=== PATIENT | female | born 1945 | race Caucasian/White ===

== ENCOUNTER 2018-08-09 17:18 | Emergency (ER) | payer OTHER, MEDICARE ==
[~2018-08-09] VITALS: Ht 165.1 cm; Wt 72.6 kg
[2018-08-09 17:20] VITALS: BP_SYST 153
--- NOTE | 2018-08-09 17:20 | NUR ---
Patient to ER bed 3 to gown for evaluation. Side rails up. Report given to FOREIGN [place].
--- NOTE | 2018-08-09 17:25 | NUR ---
Patient to ER via triage for evaluation of "seeing lights" in her peripheral vision. Patient is awake, alert and oriented in no acute distress, vital signs stable, respirations even and unlabored, skin warm and dry to touch. Patient able to ambulate without difficulty with slow, steady gait to bed 3. Awaiting evaluation by ER MD, will continue to observe and assess.
--- NOTE | 2018-08-09 17:45 | NUR ---
ER at bedside examining patient.
[2018-08-09 17:56] VITALS: BP_SYST 148
--- NOTE | 2018-08-09 17:56 | NUR ---
Patient given written and verbal discharge instructions and verbalizes understanding. ER MD Gonzalez discussed with patient the results and treatment provided. Patient in stable condition. ID arm band removed. No Rx given. Patient educated on pain management and to follow up with PMD. Pain Scale 0. Opportunity for questions provided and answered. Medication side effect fact sheet provided.
== END 2018-08-09 17:56 | disposition home or self-care (01) ==
LOC: SED 17:18
DX: H43.392 Other vitreous opacities, left eye (principal); Z88.0 Allergy status to penicillin; Z88.1 Allergy status to other antibiotic agents; Z88.2 Allergy status to sulfonamides
CPT/HCPCS: 99281

== ENCOUNTER 2019-12-12 14:58 | Inpatient (IN) | payer OTHER, MEDICARE, SELFPAY ==
[~2019-12-12] VITALS: Ht 165.1 cm; Wt 73.9 kg
[~2019-12-12 14:58] MED LIST: AMLO5TAB4 PO; ATOR10TA68 PO; BUPIVACAINE /EPINEPHRINE/PF 0.5% 30 ML VIAL INJ ONE; CEFEPIME 1 GM/VIAL (MAXIPIME) IV ONE; DESFLURANE 15 MIN GAS INH ONE; DEXAMETHASONE SOD PHOSPHATE 4 MG/ML VIAL IVP ONE; LISI40TA4 PO; LR 1,000 ML IV.SOLN IV ONE; METOPROLOL TARTRATE 5 MG/5 ML VIAL IVP ONE; MIDAZOLAM HCL 5 MG/5 ML VIAL IVP ONE; NS 1000 ML IV.SOLN IV ONE; NS IRRIG SOLN 1000 ML IR ONE; ONDANSETRON HCL 4 MG/2 ML VIAL IVP ONE; PROPOFOL 200MG/ 20ML VIAL (DIPRIVAN) IV ONE; ROCURONIUM BROMIDE 10 MG/ML (ZEMURON) IV ONE; TYC3 PO; fentaNYL CITRATE/PF 100 MCG/2 ML AMP IVP ONE
[2019-12-12 15:00] VITALS: BP_SYST 111
--- NOTE | 2019-12-12 15:00 | NUR ---
BROUGHT BACK TO BED #7 AND TRIAGED. REPORT GIVEN TO CAROLE
--- NOTE | 2019-12-12 15:02 | NUR ---
Pt brought by self , A&Ox4, pt presents to ER with abdominal pain, N/V diarrhea since yesterday, skin pink and warm, pt has fever, respirations even unlabored, cap refill <3, VSS, will cont to monitor.
--- NOTE | 2019-12-12 15:35 | NUR ---
Dr Ramsey evaluating patient at bedside.
[2019-12-12] MEDS ORDERED: ONDANSETRON HCL 4 MG/2 ML VIAL IVP ONE (16:00)
[2019-12-12] MEDS ORDERED: MORPHINE 4 MG/ML INJ. SYRINGE IVP ONE (16:00)
[2019-12-12] MEDS ORDERED: NACL 0.9% 2,000 ML IV ONE (16:00)
[2019-12-12 16:14] LABS: ANION GAP 14 (5-15); CALCIUM 8.7 mg/dL (8.4-11.0); CHLORIDE 99 mmol/L (98-107); CREATININE 0.99 mg/dL (0.55-1.30); GLUCOSE 153 mg/dL (70-99); POTASSIUM 3.2 mmol/L (3.5-5.1); SODIUM SERUM 134 mmol/L (136-145); UREA NITROGEN, BLOOD 14 mg/dL (8-21)
[2019-12-12 16:18] LABS: HEMATOCRIT 41.2 % (36-48); HEMOGLOBIN 13.6 g/dL (12.0-16.0); MEAN CORPUSCULAR HEMOGLOBIN 28 pg (27-31); MEAN CORPUSCULAR HGB CONC 33 % (32-36); MEAN CORPUSCULAR VOLUME 86 fL (79.0-98.0); PLATELET COUNT (AUTO) 255 K/uL (130-430); RED BLOOD CELL COUNT(AUTO) 4.78 MIL/uL (4.2-6.2); RED CELL DISTRIBUTION WIDTH 14.8 % (9.0-15.0); WHITE BLOOD COUNT (AUTO) 18.1 K/uL (4.8-10.8)
[2019-12-12 16:20] LABS: ALANINE AMINOTRANSFERASE 20 U/L (12-78); ALBUMIN 3.5 g/dL (3.4-4.8); ASPARTATE AMINOTRANSFERASE 13 U/L (10-37); TOTAL BILIRUBIN 1.1 mg/dL (0.0-1.0)
--- NOTE | 2019-12-12 16:40 | NUR ---
Pt medicated as ordered, well tolerated, cap refill <3, will cont to monitor.
--- NOTE | 2019-12-12 17:06 | NUR ---
Pt returned from CT at this time, infiltration noted on L wrist IV site, IV removed from L wrist, notified.
[2019-12-12 17:08] LABS: BAND % (MANUAL) 20 % (0-6); BASOPHILS % (MANUAL) 0 % (0-2); EOSINOPHILS % (MANUAL) 0 % (0-7); LYMPHOCYTES % (MANUAL) 3 % (20-46); MONOCYTES % (MANUAL) 3 % (0-11)
[2019-12-12] MEDS ORDERED: MEROPENEM 1 GM in NS 100 ML IV ONE (17:30)
[2019-12-12] MEDS ORDERED: MEROPENEM 500 MG VIAL IV ONE (17:51)
[2019-12-12] MEDS ORDERED: ACETAMINOPHEN 500 MG TABLET PO ONE (18:15)
[2019-12-12] MEDS ORDERED: NACL 0.9% 1,000 ML IV ONE (18:15)
[2019-12-12] MEDS ORDERED: ONDANSETRON HCL 4 MG/2 ML VIAL IVP PRN ×2 (19:00→21:15)
[2019-12-12] MEDS ORDERED: MORPHINE 2 MG/ML INJ. SYRINGE IVP PRN ×3 (19:00→21:15)
--- NOTE | 2019-12-12 19:30 | NUR ---
Received report for pt ready to adm to Tele, Floor RN stated Room not ready
--- NOTE | 2019-12-12 20:28 | NUR ---
VSS no s/s of acute distress Resting on gurney rails up
[2019-12-12] MEDS ORDERED: POTASSIUM CHLORIDE 40 MEQ, LIDOCAINE JECT 2% PF 100 MG 50 MG in NS 250 ML IV ONE (21:15)
[2019-12-12] MEDS ORDERED: NALOXONE HCL 0.4 MG/ML AMP (NARCAN) IVP PRN ×2 (21:15)
[2019-12-12] MEDS ORDERED: DOCUSATE SODIUM 100 MG CAPSULE PO PRN (21:15)
[2019-12-12] MEDS ORDERED: ACETAMINOPHEN 325 MG TABLET PO PRN (21:15)
[2019-12-12] MEDS ORDERED: ZOLPIDEM TARTRATE 5 MG TABLET PO PRN (21:15)
[2019-12-12] MEDS ORDERED: LORazepam 2 MG/ML VIAL IVP PRN (21:15)
[2019-12-12] MEDS ORDERED: D5NS 1,000 ML IV SCH (21:15)
[2019-12-12] MEDS ORDERED: MAGNESIUM SULFATE 50 ML IV PRN (21:15)
[2019-12-12] MEDS ORDERED: MUPIROCIN 2% TOPICAL OINTMENT 22 GM NS PRN (21:15)
--- NOTE | 2019-12-12 21:30 | NUR ---
Dr. Orlando at ER eval pt during adm prep of Pt heading to room 125
--- NOTE | 2019-12-12 21:40 | NUR ---
Patient will be admitted to care of Dr. Li. Admitted to Tele unit. Will go to room 125. Belongings list completed. Complete and up to date summary report printed. SBAR report to be given at bedside with opportunity for questions.
--- NOTE | 2019-12-12 21:40 | NUR ---
Transfer to Tele via ACLS protocol. Licensed nurse present. IV present no signs or symptoms of infiltration.
--- NOTE | 2019-12-12 21:40 | NUR ---
ADMISSION: The patient, ARTUR GARCIA, 74 y/o, F admitted by HUDSON VERNON DO,TO ROOM 125 c , with the diagnosis of SEPSIS , ACUTE APPENDICITIS .
--- NOTE | 2019-12-12 22:00 | NUR ---
INITIAL NOTES Dr. Orlando at bedside, patient resting, no signs of acute respiratory distress noted. IV site patent, dressings c/d/i. Call light within reach, bed alarm refused after patient demonstrates proper usage of call light. Patient to be NPO. Will continue to monitor.
[2019-12-12 22:27] VITALS: BP_SYST 97
--- NOTE | 2019-12-12 23:08 | NUR ---
SPOKE TO DR. VERNON AND RECEIVED NEW ORDERS FOR POTASSIUM 40 MEQ WITHOUT THE LIDOCAINE, PHARMACY IS UNAVAILABLE AT THIS TIME TO MIX IT.
--- NOTE | 2019-12-12 23:10 | NUR ---
HIGH ALERT NOTE: Called Dr. VERNON back at [phone] identified within the medical roster to verify physician authenticity.
[2019-12-12] MEDS ORDERED: POTASSIUM CHLORIDE 40 MEQ in NS 250 ML IV ONE (23:15)
[2019-12-13] VITALS (7 sets, daily range): BP systolic 96–133
--- NOTE | 2019-12-13 00:25 | NUR ---
First potassium bag provided to patient, patient tolerates well with ice pack at IV site. Will continue to monitor.
[2019-12-13] MEDS: KCL 20 mEq in 100 mL (PREMIX) 100 ML IV SCH ×2 (00:30→03:00)
--- NOTE | 2019-12-13 01:28 | NUR ---
CONSULTATION PAGED/CALLED Reason for Consultation: SEPSIS , ACUTE APPENDICITIS Person Who was Notified: DR. PAZ AT BEDSIDE Consulting Physician: DR. PAZ International Accountant Specialty: Ordering Physician: SAULO
--- NOTE | 2019-12-13 01:29 | NUR ---
CONSULTATION PAGED/CALLED Reason for Consultation: SEPSIS. ACUTE APPENDICITIS Person Who was Notified:KATE Consulting Physician: SUSIE Correctional Manager Specialty: Ordering Physician: SAULO
[2019-12-13] MEDS ORDERED: MEROPENEM 1 GM VIAL IV ONE (01:31)
--- NOTE | 2019-12-13 01:38 | NUR ---
Patient resting, no signs of distress noted. IVF running. Call light within reach. Will continue to monitor.
[2019-12-13 03:59] LABS: BILIRUBIN,URINE NEGATIVE (NEGATIVE); CLARITY/URINE CLEAR (CLEAR); COLOR,URINE YELLOW (YELLOW); GLUCOSE,URINE NEGATIVE (NEGATIVE); KETONES,URINE NEGATIVE (NEGATIVE); LEUKOCYTE ESTERASE ,URINE NEGATIVE (NEGATIVE); NITRITE, URINE NEGATIVE (NEGATIVE); PROTEIN URINE NEGATIVE (NEGATIVE); UROBILINOGEN,URINE 0.2 (0.2-1.0)
[2019-12-13 04:00] LABS: BLOOD, URINE TRACE (NEGATIVE)
[2019-12-13 04:07] LABS: BACTERIA,URINE FEW /HPF (None Seen); WBC,URINE 0-3 /HPF (0-3)
--- NOTE | 2019-12-13 04:15 | NUR ---
Patient ambulated to the restroom with steady gait. No signs of distress at this time. Will continue to monitor.
[2019-12-13] MEDS ORDERED: MEROPENEM 1 GM in NS 100 ML IV SCH (06:00)
[2019-12-13 07:06] LABS: BASOPHILS % (AUTO) 0.1 % (0.0-2.0); HEMATOCRIT 35.1 % (36-48); HEMOGLOBIN 11.5 g/dL (12.0-16.0); LYMPHOCYTES # (AUTO) 0.9 K/uL (1.0-5.5); LYMPHOCYTES % (AUTO) 6.5 % (20.5-51.5); MEAN CORPUSCULAR HEMOGLOBIN 29 pg (27-31); MEAN CORPUSCULAR HGB CONC 33 % (32-36); MEAN CORPUSCULAR VOLUME 87 fL (79.0-98.0); MONOCYTES # (AUTO) 0.2 K/uL (0.0-1.0); MONOCYTES % (AUTO) 1.7 % (1.7-9.3); NEUTROPHILS # (AUTO) 12.9 K/uL (1.8-7.7); NEUTROPHILS % (AUTO) 91.7 % (40.0-70.0); PLATELET COUNT (AUTO) 197 K/uL (130-430); RED BLOOD CELL COUNT(AUTO) 4.02 MIL/uL (4.2-6.2); RED CELL DISTRIBUTION WIDTH 14.8 % (9.0-15.0); WHITE BLOOD COUNT (AUTO) 14.1 K/uL (4.8-10.8)
--- NOTE | 2019-12-13 07:15 | NUR ---
CLOSING NOTES Patient is resting, no signs of distress noted. IV site patent, dressings c/d/i, IVF running. Call light within reach, bed alarm refused after patient demonstrated proper call light usage, bed at lowest position. All needs met throughout shift, NPO throughout the night. Will endorse care to oncoming shift.
--- NOTE | 2019-12-13 07:35 | NUR ---
Opening Notes Patient received awake, alert, and oriented with no signs of distress at this time. Patient on room air, saturation 98%. Patient with peripheral IV receiving D5NS at 80 ml/hr. Patient medicated for pain by binder stripper machine RN, patient comfortable at this time. Safety precautions enforced.
[2019-12-13 07:50] LABS: ANION GAP 10 (5-15); CALCIUM 8.2 mg/dL (8.4-11.0); CHLORIDE 108 mmol/L (98-107); CREATININE 0.83 mg/dL (0.55-1.30); GLUCOSE 114 mg/dL (70-99); POTASSIUM 4.1 mmol/L (3.5-5.1); SODIUM SERUM 141 mmol/L (136-145); UREA NITROGEN, BLOOD 15 mg/dL (8-21)
[2019-12-13 07:56] LABS: INR 1.2 (0.8-1.2); PROTHROMBIN TIME 12.7 SECS (9.5-12.5)
--- NOTE | 2019-12-13 10:00 | NUR ---
RN Rounds Patient resting in bed, pain level tolerable at this time. Patient in no signs of distress. Patient able to make needs known. Reinforced teaching regarding call light use.
--- NOTE | 2019-12-13 12:00 | NUR ---
RN Rounds Patient resting at this time with mild complaints of pain. Patient stated pain level is tolerable at this time. Patient in no signs of distress.
--- NOTE | 2019-12-13 13:30 | NUR ---
Surgery follow-up Followed up regarding time of surgery per patient's request. Patient to be taken in for surgery between [id number].
--- NOTE | 2019-12-13 14:40 | NUR ---
Surgery Patient taken to surgery via bed for surgical procedure. Patient assisted with RN and autobody technician. Report given to circulating RN.
[2019-12-13] MEDS ORDERED: MEROPENEM 1 GM in NS 100 ML IV ONE (14:45)
[2019-12-13] MEDS ORDERED: LABETALOL 100 MG/ 20ML VIAL IVP PRN (16:00)
[2019-12-13] MEDS ORDERED: LR 1,000 ML IV SCH (16:00)
[2019-12-13] MEDS ORDERED: hydrALAZINE HCL 20 MG/ML VIAL IVP PRN (16:00)
[2019-12-13] MEDS ORDERED: HYDROmorphone 1 MG INJ. 1 MG/ML AMPUL IVP PRN ×3 (16:00→16:30)
[2019-12-13] MEDS ORDERED: MEPERIDINE HCL/PF 25 MG/ML DISP.SYRIN IVP PRN (16:00)
[2019-12-13] MEDS ORDERED: ONDANSETRON HCL 4 MG/2 ML VIAL IVP PRN ×2 (16:00→16:30)
[2019-12-13] MEDS ORDERED: METOCLOPRAMIDE HCL 10 MG/2 ML VIAL IVP PRN (16:00)
[2019-12-13] MEDS ORDERED: MIDAZOLAM HCL 2 MG/2 ML VIAL (VERSED) IVP PRN (16:00)
[2019-12-13] MEDS ORDERED: NALOXONE HCL 0.4 MG/ML AMP (NARCAN) IVP PRN (16:30)
[2019-12-13] MEDS ORDERED: ACETAMINOPHEN 325 MG TABLET PO PRN (16:30)
[2019-12-13] MEDS ORDERED: HYDROcodone/ACETAMIN 5-325 MG TAB (NORCO/ VICODIN) PO PRN (16:30)
--- NOTE | 2019-12-13 17:04 | NUR ---
Dietitian Recommendations * Consider advance diet if/when medically appropriate (clear liquid diet w/ Ensure Clear TID) JOSE ROBERTO, RD Please refer to Nutrition Assessment for details. Addendum: 12/13/19 at [address] Amended: Links added.
--- NOTE | 2019-12-13 17:10 | NUR ---
Back from surgery/ lead java developer architect Patient back from surgery and transported back to Room 125B. Patient connected to cardiac monitoring device and is being assessed [id number]. Patient awake, alert, and oriented, able to follow commands. Patient is weak, but easily arousable with no signs of distress. Patient on room air. Patient with left hand 20 gauge IV. Patient has a EUGENE drain in place on right lower abdomen with sanguinous fluid noted. Per OSCILLOGRAPH TECHNICIAN, EUGENE drain with 75 ml output. Patient does not have any complaints of pain at this time. Patient provided with ice chips with diet to be advanced as tolerated per MD order. Reinforced education regarding use of incentive spirometer. Patient verbalized teaching. Call light within reach. Safety precautions enforced.
[2019-12-13] MEDS: NACL 0.9% 1,000 ML IV SCH (17:52)
--- NOTE | 2019-12-13 18:00 | NUR ---
RN Rounds Patient resting in pain with no signs of distress at this time. Patient able to verbalized needs. Patient stated she feels "okay." Safety precautions enforced.
--- NOTE | 2019-12-13 19:17 | NUR ---
Closing Notes Patient endorsed to public works inspector RN using SBAR format. No signs of distress noted.
--- NOTE | 2019-12-13 20:35 | NUR ---
DC/ COVID ISOLATION/ TRANSFER OF CARE SPOKE WITH DR. ADAN. AT 2000 PER DC ISOLATION. PATIENT AOX4. VITAL SIGNS WNL. NO SIGNS OF RESPIRATORY DISTRESS AND DISCOMFORT NOTED. VERBALIZED TOLERABLE ABDOMINAL PAIN, REFUSED PAIN MEDICATION AT THIS TIME. EDUCATED ON PURPOSE AND BENEFITS OF INCENTIVE SPIROMETER, PATIENT VERBALIZED UNDERSTANDING. CALL LIGHT WITHIN REACH. SAFETY PRECAUTIONS IN PLACE. PATIENT WAS MOVE TO ROOM 110 C. REPORT GIVEN TO FOREIGN PASCAL FOR CONTINUATION OF CARE.
--- NOTE | 2019-12-13 20:38 | NUR ---
RECEIVED REPORT FROM FOREIGN SUGGS. PT RESTING IN BED, ALERT & ORIENTED X4. BREATHING EVEN AND UNLABORED ROOM AIR. PT DENIES ANY PAIN AT THIS TIME. IS AT THE BEDSIDE, PT WENT UP TO 1000ML. TWO BANDAGE DRESSING PRESENT ON ABDOMEN, NO SIGNS OF BLEEDING OR DRAINAGE NOTED, CLEAN AND INTACT. SCD BILATERALLY. CALL LIGHT WITHIN REACH. SIDE RAILS UP X3. SAFETY AND FALL PRECAUTIONS ARE IN PLACE. WILL CONTINUE TO MONITOR. Addendum: 12/14/19 at 0141 by Tamanna Son RN IS = INCENTIVE SPIROMETER
[2019-12-13] MEDS: MEROPENEM 1 GM in NS 100 ML IV SCH (21:25)
--- NOTE | 2019-12-13 22:56 | NUR ---
PAIN/MORPHINE PT REPORTING ABDOMINAL INCISION SITE PAIN. ADMINISTERED MORPHINE ORDERED PRN. DISCUSSED MEDICATION ACTIONS AND POTENTIAL SIDE EFFECTS. PT VERBALIZED UNDERSTANDING. BREATHING EVEN AND UNLABORED TO ROOM AIR. NO S/S OF RESPIRATORY DISTRESS NOTED. IVF RUNNING ORDERED RATE. PT TOLERATING WELL. CALL LIGHT WITHIN REACH. SAFETY AND FALL PRECAUTIONS ARE IN PLACE. WILL CONTINUE TO MONITOR.
[2019-12-14 01:17] VITALS: BP_SYST 115
--- NOTE | 2019-12-14 01:43 | NUR ---
RN ROUNDS PT SLEEPING. CHEST RISE AND FALL SYMMETRICAL. NO S/S OF ACUTE DISTRESS NOTED. PAIN IS CONTROLLED AT THIS TIME. BREATHING EVEN AND UNLABORED TO ROOM AIR. IVF RUNNING ORDERED RATE. NO SIGNS OF INFILTRATION NOTED. SCD BILATERALLY. CALL LIGHT WITHIN REACH. BED ALARM ON. SAFETY AND FALL PRECAUTIONS ARE IN PLACE. WILL CONTINUE TO MONITOR.
[2019-12-14] MEDS: MEROPENEM 1 GM in NS 100 ML IV SCH ×3 (05:28→22:08)
[2019-12-14] MEDS: NACL 0.9% 1,000 ML IV SCH ×3 (05:29→22:30)
[2019-12-14 06:22] LABS: BASOPHILS % (AUTO) 0.1 % (0.0-2.0); HEMATOCRIT 33.2 % (36-48); HEMOGLOBIN 10.7 g/dL (12.0-16.0); LYMPHOCYTES # (AUTO) 0.7 K/uL (1.0-5.5); LYMPHOCYTES % (AUTO) 5.5 % (20.5-51.5); MEAN CORPUSCULAR HEMOGLOBIN 28 pg (27-31); MEAN CORPUSCULAR HGB CONC 32 % (32-36); MEAN CORPUSCULAR VOLUME 87 fL (79.0-98.0); MONOCYTES # (AUTO) 0.3 K/uL (0.0-1.0); MONOCYTES % (AUTO) 2.1 % (1.7-9.3); NEUTROPHILS # (AUTO) 11.9 K/uL (1.8-7.7); NEUTROPHILS % (AUTO) 92.3 % (40.0-70.0); PLATELET COUNT (AUTO) 180 K/uL (130-430); RED BLOOD CELL COUNT(AUTO) 3.81 MIL/uL (4.2-6.2); RED CELL DISTRIBUTION WIDTH 15.1 % (9.0-15.0); WHITE BLOOD COUNT (AUTO) 12.9 K/uL (4.8-10.8)
--- NOTE | 2019-12-14 06:40 | NUR ---
CLOSING NOTES PT RESTING IN BED, WATCHING TV. CHEST RISE AND FALL SYMMETRICAL. O2 SAT 96%. NO S/S OF ACUTE DISTRESS NOTED. PAIN IS CONTROLLED AT THIS TIME. BREATHING EVEN AND UNLABORED TO ROOM AIR. TWO BANDAGE DRESSING ON ABDOMEN CLEAN, DRY, AND INTACT. NO BLEEDING NOTED. PT HAS EUGENE DRAIN AT LEFT LOWER ABDOMEN. 25ML OF DRAINAGE OUTPUT NOTED. IVF RUNNING ORDERED RATE. NO SIGNS OF INFILTRATION NOTED. SCD BILATERALLY. CALL LIGHT WITHIN REACH. BED ALARM ON. SAFETY AND FALL PRECAUTIONS ARE IN PLACE. ALL NEEDS ARE MET THROUGHOUT SHIFT. WILL CONTINUE TO MONITOR UNTIL ENDORSE TO DAY SHIFT RN.
[2019-12-14 07:33] LABS: ALANINE AMINOTRANSFERASE 11 U/L (12-78); ALBUMIN 2.3 g/dL (3.4-4.8); ANION GAP 7 (5-15); ASPARTATE AMINOTRANSFERASE 11 U/L (10-37); CALCIUM 8.5 mg/dL (8.4-11.0); CHLORIDE 107 mmol/L (98-107); CREATININE 0.67 mg/dL (0.55-1.30); GLUCOSE 117 mg/dL (70-99); POTASSIUM 3.7 mmol/L (3.5-5.1); SODIUM SERUM 137 mmol/L (136-145); TOTAL BILIRUBIN 0.4 mg/dL (0.0-1.0); UREA NITROGEN, BLOOD 15 mg/dL (8-21)
--- NOTE | 2019-12-14 07:36 | NUR ---
OPENING NOTE Patient resting in the bed. No acute distress. AAO x 4. Denied of pain. Skin warm and dry to touch. IV intact to left hand, no redness, no swelling, no drainage. On NS at 100ml/hr, infusing well. Lap site x 2 intact with bandage, no bleeding, no drainage noted. Mid-abdomen EUGENE drain intact with pink drainage, no bleeding, no drainage noted on the site. Discussed the safety issue, use call light when needs help, and plan of care, verbally understanding. Safety measure maintained. Bed in low position, side rails up, bed alarm on. Call light within reached. Will continue to monitor.
[2019-12-14 07:50] VITALS: BP_SYST 123
--- NOTE | 2019-12-14 09:10 | NUR ---
SEEN AND EXAMINED BY JUAN SONG (COVERING FOR DR. VERNON)
--- NOTE | 2019-12-14 11:25 | NUR ---
AMBULATED IN THE HALLWAY Ambulated patient in the hallway with assistance. Tolerated well. No acute distress. Assisted back to bed. Safety measure maintained. Call light within reached. Bed locked in low position, side rails up, bed alarm on. Continue to monitor.
[2019-12-14 11:31] VITALS: BP_SYST 123
--- NOTE | 2019-12-14 13:29 | NUR ---
ROUND Patient resting in the bed. No acute distress. IV intact, IVF infusing well. Safety measure maintained. Call light within reached. Bed locked in low position, side rails up, bed alarm on. Continue to monitor.
--- NOTE | 2019-12-14 13:46 | NUR ---
SEEN AND EXAMINED BY AMELIE JIMENEZ. Per Dr. Orlando, keep the patient clear liquid now because the patient not passing gas. Continue to monitor and will advance diet as tolerated.
--- NOTE | 2019-12-14 15:05 | NUR ---
ROUND Patient resting in the bed. No acute distress. IV intact, IVF infusing well. Safety measure maintained. Call light within reached. Bed locked in low position, side rails up, alarm on. Continue to monitor.
[2019-12-14 15:41] VITALS: BP_SYST 129
--- NOTE | 2019-12-14 16:52 | NUR ---
BOWEL MOVEMENT Per patient has diarrhea 4 times. Told patient to show me next time when has diarrhea. Not advance diet at this time until the patient has no more episode of diarrhea. Then will advance to full liquid diet. Will endorse to night nurse.
[2019-12-14] MEDS: metroNIDAZOLE 500 mg/NS 100 ML IV SCH ×2 (18:00→21:03)
--- NOTE | 2019-12-14 18:42 | NUR ---
CLOSING NOTE Patient resting in the bed. No acute distress. Denied of pain. Skin warm and dry to touch. IV intact to left hand, no redness, no swelling, no drainage. On NS at 100ml/hr, infusing well. Lap site x 2 intact with bandage, no bleeding, no drainage noted. Mid-abdomen EUGENE drain intact with pink drainage, no bleeding, no drainage noted on the site. All needs met. Safety measure maintained. Bed in low position, side rails up, bed alarm on. Call light within reached. Will endorse to night nurse.
--- NOTE | 2019-12-14 19:30 | NUR ---
Initial Note: Received report from percy CARRASQUILLO. Patient is in bed, resting. No acute distress. Even, nonlabored breathing on room air. IV site is patent and intact. Two incision sites on abdomen, dressings c/d/i. EUGENE drainage has red drainage. Bed is locked at lowest position. Side rails up x2. Call light is with patient. Safety and fall precautions in place. Will continue with plan of care. Addendum: 12/15/19 at 0049 by Emilie Garcia RN Patient is able to demonstrate proper use of incentive spirometer. Inspired 1000ml.
[2019-12-14 20:00] VITALS: BP_SYST 130
[2019-12-14] MEDS ORDERED: metroNIDAZOLE 500 mg/NS 200 ML IV ONE (20:19)
--- NOTE | 2019-12-14 22:00 | NUR ---
Rounds: Patient is in bed, watching TV. No acute distress. Breathing is even, nonlabored. Call light is with patient. Safety and fall precautions in place. Will continue to monitor.
[2019-12-15] VITALS: BP_SYST 131
--- NOTE | 2019-12-15 00:15 | NUR ---
Rounds: Patient is sleeping in bed. No s/s of acute distress. Respirations are even, nonlabored on room air. Call light is with patient. Safety and fall precautions in place. Will continue monitoring.
--- NOTE | 2019-12-15 00:18 | NUR ---
Rounds: Patient is awake in bed, watching TV. No acute distress. Breathing is even, nonlabored on room air. Call light is with patient. Safety and fall precautions in place. Will continue to monitor. Addendum: 12/16/19 at 0057 by Nathan Amaral RN Please disregard, wrong date
--- NOTE | 2019-12-15 02:30 | NUR ---
Rounds: Patient is sleeping in bed. No acute distress. Respirations are even, nonlabored on room air. Call light is with patient. Safety and fall precautions in place. Will continue to monitor.
--- NOTE | 2019-12-15 04:45 | NUR ---
Rounds: Patient is sleeping in bed. Showing no signs of acute distress. Breathing is even, nonlabored on room air. Call light is with patient. Safety and fall precautions in place. Will continue monitoring.
[2019-12-15] MEDS: metroNIDAZOLE 500 mg/NS 100 ML IV SCH ×3 (05:04→21:27)
[2019-12-15 06:20] LABS: BASOPHILS % (AUTO) 0.1 % (0.0-2.0); EOSINOPHILS # (AUTO) 0.2 K/uL (0.0-0.4); EOSINOPHILS % (AUTO) 2.1 % (0.0-4.0); HEMATOCRIT 32.4 % (36-48); HEMOGLOBIN 10.7 g/dL (12.0-16.0); LYMPHOCYTES # (AUTO) 0.8 K/uL (1.0-5.5); LYMPHOCYTES % (AUTO) 10.4 % (20.5-51.5); MEAN CORPUSCULAR HEMOGLOBIN 29 pg (27-31); MEAN CORPUSCULAR HGB CONC 33 % (32-36); MEAN CORPUSCULAR VOLUME 86 fL (79.0-98.0); MONOCYTES # (AUTO) 0.3 K/uL (0.0-1.0); MONOCYTES % (AUTO) 3.8 % (1.7-9.3); NEUTROPHILS # (AUTO) 6.5 K/uL (1.8-7.7); NEUTROPHILS % (AUTO) 83.6 % (40.0-70.0); PLATELET COUNT (AUTO) 196 K/uL (130-430); RED BLOOD CELL COUNT(AUTO) 3.75 MIL/uL (4.2-6.2); RED CELL DISTRIBUTION WIDTH 14.9 % (9.0-15.0); WHITE BLOOD COUNT (AUTO) 7.7 K/uL (4.8-10.8)
[2019-12-15 06:24] LABS: ANION GAP 7 (5-15); CALCIUM 8.2 mg/dL (8.4-11.0); CHLORIDE 112 mmol/L (98-107); CREATININE 0.55 mg/dL (0.55-1.30); GLUCOSE 83 mg/dL (70-99); POTASSIUM 3.2 mmol/L (3.5-5.1); SODIUM SERUM 144 mmol/L (136-145); UREA NITROGEN, BLOOD 12 mg/dL (8-21)
[2019-12-15] MEDS: NACL 0.9% 1,000 ML IV SCH ×2 (06:39→20:08)
[2019-12-15] MEDS: MEROPENEM 1 GM in NS 100 ML IV SCH ×3 (06:39→23:02)
--- NOTE | 2019-12-15 07:00 | NUR ---
Closing notes: Patient is in bed, resting. No acute distress. Even, nonlabored breathing on room air. IV site is patent and intact. Two incision sites on abdomen, dressings c/d/i. EUGENE drainage has red drainage. All needs met. Bed is locked at lowest position. Side rails up x2. Call light is with patient. Safety and fall precautions in place. Will endorse to dayshift RN.
--- NOTE | 2019-12-15 07:28 | NUR ---
OPENING NOTE Patient resting in the bed. No acute distress. AAO x 4. Denied of pain. Skin warm and dry to touch. IV intact to left hand, no redness, no swelling, no drainage. On NS at 100ml/hr, infusing well. Lap site x 2 intact with bandage, no bleeding, no drainage noted. Mid-abdomen EUGENE drain intact with pink drainage, no bleeding, no drainage noted on the site. Discussed the safety issue, use call light when needs help, and plan of care, verbally understanding. Safety measure maintained. Bed in low position, side rails up. Refused bed alarm, risk and benefit explained, verbally understanding. Call light within reached. Will continue to monitor.
[2019-12-15 07:45] VITALS: BP_SYST 132
--- NOTE | 2019-12-15 08:53 | NUR ---
POTASSIUM=3.2 Seen and examined by Dr. Garces with order advance diet to full liquid. Reported to Dr. Garces, patient's K=3.2 and PRN was ordered. Order noted and carry out. Called dietary to bring the breakfast. Also informed to Dr. Garces, patient has diarrhea 4 times yesterday afternoon. 2 times during night, and 2 times this morning. Will continue to monitor.
[2019-12-15] MEDS: POTASSIUM CHLORIDE 20 MEQ TAB.PRT.SR PO PRN (09:07)
--- NOTE | 2019-12-15 11:25 | NUR ---
ROUND Patient resting in the bed. No acute distress. IV intact, IVF infusing well. Safety measure maintained. Call light within reached. Bed locked in low position, side rails up. Continue to monitor.
[2019-12-15 11:29] VITALS: BP_SYST 129
--- NOTE | 2019-12-15 13:02 | NUR ---
EUGENE REMOVED Seen and examined by Gurinder Ya. DR. Orlando removed EUGENE drain, patient tolerated procedure well. Dr. Orlando removed 2 lap sites bandage and sterile stripe, no bleeding, no drainage noted. New bandage applied. Patient tolerated well. no acute distress. Safety measure maintained. Call light within reached. Bed locked in low position, side rails up, bedalarm on. Continue to monitor.
[2019-12-15 15:30] VITALS: BP_SYST 120
--- NOTE | 2019-12-15 16:25 | NUR ---
SEEN AND EXAMINED BY MICHAEL DELVALLE.
--- NOTE | 2019-12-15 18:55 | NUR ---
CLOSING NOTE Patient resting in the bed. No acute distress. Denied of pain. Skin warm and dry to touch. IV intact to left hand, no redness, no swelling, no drainage. On NS at 100ml/hr, infusing well. Lap site x 2 and pervious EUGENE drain site intact with bandage, no bleeding, no drainage noted. All needs met. Safety measure maintained. Bed in low position, side rails up. Refused bed alarm, risk and benefit explained, verbally understanding. Call light within reached. Will endorse to night nurse.
--- NOTE | 2019-12-15 19:54 | NUR ---
Initial Note: Received report from dayskeesha RN. Patient is lying in bed, resting. No acute distress. Even, nonlabored breathing on room air. IV site is patent and intact. Lap sites x3 and site of D/C'd EUGENE site covered with adhesive bandage x3. Clean, dry, intact. Call light is with patient. Safety and fall precautions in place. Will continue with plan of care.
[2019-12-15 20:21] VITALS: BP_SYST 135
[2019-12-15] MEDS ORDERED: FLU VACC QS2020-21(65UP)/PF 0.7 ML/SYRINGE I.M. PRN (21:15)
--- NOTE | 2019-12-15 21:31 | NUR ---
Flu vaccine: Patient requested to have flu vaccine administered. Discussed indications and side effects, patient verbalized understanding. Flu vaccine administered intramuscularly. Patient tolerated well. Call light with patient. Will continue monitoring.
[2019-12-15 23:04] VITALS: BP_SYST 141
--- NOTE | 2019-12-16 00:18 | NUR ---
Rounds: Patient is awake in bed, watching TV. No acute distress. Breathing is even, nonlabored on room air. Call light is with patient. Safety and fall precautions in place. Will continue to monitor.
--- NOTE | 2019-12-16 03:26 | NUR ---
Rounds: Patient is resting in bed, no acute distress. Breathing is even and nonlabored on room air. IV fluids infusing well. Call light is with patient. Safety and fall precautions in place. Will continue to monitor.
[2019-12-16] MEDS: metroNIDAZOLE 500 mg/NS 100 ML IV SCH (05:05)
[2019-12-16] MEDS: NACL 0.9% 1,000 ML IV SCH (05:06)
--- NOTE | 2019-12-16 06:08 | NUR ---
Closing note: Patient is in bed, resting. No acute distress. Even, nonlabored breathing on room air. IV site is patent and intact. All needs met. Safety, fall precautions observed. Will endorse care to dayshift RN.
[2019-12-16] MEDS: MEROPENEM 1 GM in NS 100 ML IV SCH (06:19)
[2019-12-16 06:41] LABS: BASOPHILS % (AUTO) 0.4 % (0.0-2.0); EOSINOPHILS # (AUTO) 0.3 K/uL (0.0-0.4); EOSINOPHILS % (AUTO) 4.3 % (0.0-4.0); HEMATOCRIT 33.6 % (36-48); HEMOGLOBIN 11.2 g/dL (12.0-16.0); LYMPHOCYTES # (AUTO) 0.9 K/uL (1.0-5.5); LYMPHOCYTES % (AUTO) 15.3 % (20.5-51.5); MEAN CORPUSCULAR HEMOGLOBIN 29 pg (27-31); MEAN CORPUSCULAR HGB CONC 33 % (32-36); MEAN CORPUSCULAR VOLUME 86 fL (79.0-98.0); MONOCYTES # (AUTO) 0.4 K/uL (0.0-1.0); MONOCYTES % (AUTO) 7.3 % (1.7-9.3); NEUTROPHILS # (AUTO) 4.3 K/uL (1.8-7.7); NEUTROPHILS % (AUTO) 72.7 % (40.0-70.0); PLATELET COUNT (AUTO) 230 K/uL (130-430); RED BLOOD CELL COUNT(AUTO) 3.93 MIL/uL (4.2-6.2); RED CELL DISTRIBUTION WIDTH 14.8 % (9.0-15.0); WHITE BLOOD COUNT (AUTO) 5.9 K/uL (4.8-10.8)
[2019-12-16 06:58] LABS: ANION GAP 8 (5-15); CALCIUM 8.2 mg/dL (8.4-11.0); CHLORIDE 108 mmol/L (98-107); CREATININE 0.57 mg/dL (0.55-1.30); GLUCOSE 89 mg/dL (70-99); POTASSIUM 3.3 mmol/L (3.5-5.1); SODIUM SERUM 142 mmol/L (136-145); UREA NITROGEN, BLOOD 7 mg/dL (8-21)
[2019-12-16 08:00] VITALS: BP_SYST 132
--- NOTE | 2019-12-16 08:00 | NUR ---
Initial notes Sitting in the chair, eating breakfast. denies any pain or discomfort. ambulate with steady gait. update paln of care. call light in reach. enc. to call for help as needed.
[2019-12-16] MEDS: POTASSIUM CHLORIDE 20 MEQ TAB.PRT.SR PO PRN (09:28)
--- NOTE | 2019-12-16 09:30 | NUR ---
ROUNDS Sitting in the chair, denies any pain or discomfort. tolerating regular diet. denies any nausea or vomiting.
--- NOTE | 2019-12-16 10:19 | NUR ---
PAGED PAGED MICHAEL DAMON AT [phone] SPOKE WITH TOAN.
[2019-12-16] MEDS ORDERED: HYDR-3917 PO (10:41)
[2019-12-16] MEDS ORDERED: METR500T PO (10:43)
[2019-12-16] MEDS ORDERED: LEVO500T89 PO (10:43)
--- NOTE | 2019-12-16 11:00 | NUR ---
MD ROUNDS SEEN BY DR. ADAN AT BEDSIDE.
[2019-12-16 11:27] VITALS: BP_SYST 120
[2019-12-16 11:29] VITALS: BP_SYST 120
--- NOTE | 2019-12-16 12:09 | NUR ---
instruction D/c instruction and prescription for pain meds given and discussed with patient. Follow up care also discussed. patient verbalize understanding. Patient is waiting for her to pick her up. Denies any pain
--- NOTE | 2019-12-16 12:29 | NUR ---
discharge d/c pt home, denies any pain or discomfort. ambulate with steady gait. arm band and ivl removed.
[2019-12-16] MEDS ORDERED: ATORVASTATIN 10 MG TABLET PO SCH (21:00)
[2019-12-17] MEDS ORDERED: lisinopriL 20 MG TABLET PO SCH (09:00)
[2019-12-17] MEDS ORDERED: amLODIPine BESYLATE 5 MG TABLET PO SCH (09:00)
--- NOTE | 2019-12-17 13:42 | NUR ---
Discharge Follow Up Phone Call Phoned patient, , and spoke with patient's . He stated they filled patient's prescriptions and patient is taking her medications as directed. He is unsure if patient has made her follow up appointments yet. Discussed that patient will need to make three appointments: PCP, ID, Surgeon. No questions or concerns. Patient was resting and did not want to come to the phone.
== END 2019-12-16 12:30 | disposition home or self-care (01) | DRG 853 ==
LOC: SED 14:58 → STU 18:56 → SMU 12-14 12:34
PROVIDERS: ADMIT General Practice; ATTEND General Practice
PROC: 3E1M38Z Irrigation of Peritoneal Cavity using Irrigating Substance, Percutaneous Approach (ICD-10-PCS; 2019-12-13)
PROC: 0DTJ4ZZ Resection of Appendix, Percutaneous Endoscopic Approach (ICD-10-PCS; principal; 2019-12-13 13:30)
DX: A41.9 Sepsis, unspecified organism (principal); E43 Unspecified severe protein-calorie malnutrition; K35.891 Other acute appendicitis without perforation, with gangrene; E87.1 Hypo-osmolality and hyponatremia; E87.6 Hypokalemia; Z20.828 Contact with and (suspected) exposure to other viral communicable diseases; M47.896 Other spondylosis, lumbar region; Z96.642 Presence of left artificial hip joint; K66.0 Peritoneal adhesions (postprocedural) (postinfection); I10 Essential (primary) hypertension; E78.5 Hyperlipidemia, unspecified; Z68.27 Body mass index [BMI] 27.0-27.9, adult; Z88.0 Allergy status to penicillin; Z88.1 Allergy status to other antibiotic agents
CPT/HCPCS: 36415; 71045; 80048; 80053; 81000-TC; 83036; 83605; 83735-TC; 85007; 85025; 85027; 85610-TC; 85730-TC; 86886; 86900; 86901; 87040-TC; 87070; 87070-TC; 87075-TC; 87081; 88304; 93005; C1727; G0378; J0692; J1100; J2185; J2250; J2270; J2405; J2704; J3010; J3465; J3480; J3490; J7030; J7042; J7050; J7120; Q9967; U0003-CS